=== PATIENT | male | born 1960 | race Caucasian/White ===

== ENCOUNTER 2022-04-22 15:24 | Emergency (ER) | payer OTHER, BC, SELFPAY ==
[2022-04-22] VITALS (39 sets, daily range): BP systolic 129–157; BP diastolic 68–96; PULSE 55–72; RESP 10–21; TEMP 36.6–36.8; O2SAT 91–100
--- NOTE | ~2022-04-22 | XR_ITS ---
EXAMINATION: XR hip RT min 2V DATE: 04/22/2022 15:58 INDICATION: Right hip dislocation. TECHNIQUE: 2 views of right hip on 3 radiographs were obtained. COMPARISON: None. FINDINGS: There is a total right hip arthroplasty. There is anterior and lateral dislocation of the f emoral component with respect to the acetabular component. No fracture. No periprosthetic lucency to suggest loosening or infection. IMPRESSION: 1. Dislocated total right hip arthroplasty. Reviewed, dictated and finalized at location A.
--- NOTE | ~2022-04-22 | XR_ITS ---
EXAMINATION: XR hip RT 1V INDICATION: Post reduction TECHNIQUE: AP view of the right hip is obtained. COMPARISON: 1550 hours FINDINGS: The total right hip arthroplasty has been reduced. Alignment is anatomic. No fracture is id entified. IMPRESSION: 1. Reduced total right hip arthroplasty. Reviewed, dictated and finalized at location A.
--- NOTE | 2022-04-22 15:46 | PC.NURSE ---
Pt off floor to xray
--- NOTE | 2022-04-22 16:08 | ED.LOWEXIN ---
HPI - Extremity Injury (Lower) General Chief Complaint: Extremity Injury, Lower <Larissa Bernabe PA-C - Last Filed: 04/22/22 18:16> Stated Complaint: ?hip out of socket <ONEL Bell Last Filed: 04/22/22 18:16> Time Seen by Provider: 04/22/22 15:42 <ONEL Bell Last Filed: 04/22/22 18:16> Source: patient <ONEL Bell Last Filed: 04/22/22 18:16> Mode of arrival: ambulatory <ONEL Bell Last Filed: 04/22/22 18:16> Limitations: no limitations <ONEL Bell Last Filed: 04/22/22 18:16> History of Present Illness HPI Narrative: This is a 62-year-old male that presents to the emergency department for right hip pain. Reports he was stepping up into the bed of his truck and felt a pop in the right hip. Reports this is happened several times before, but it usually resolves itself. He has never had to come to the ER to have the hip reduced. He has history of a right hip replacement which was done about 5 years ago. Reports decreased ROM. Denies numbness. <Larissa Bernabe PA-C - Last Filed: 04/22/22 18:16> Related Data Allergies/Adverse Reactions: Allergies Allergy/AdvReac Type Severity Reaction Status Date / Time Penicillins Allergy Unknown Verified 04/22/22 15:46 <ONEL Bell Last Filed: 04/22/22 18:16> Review of Systems Review of Systems: CONSTITUTIONAL: Denies fever MUSCULOSKELETAL: Reports joint pain, and myalgia. NEUROLOGIC: Denies numbness <ONEL Bell Last Filed: 04/22/22 18:16> All systems reviewed & are unremarkable except as noted in HPI and below <ONEL Bell Last Filed: 04/22/22 18:16> [facility] Past Medical History Medical History: Medical History (Updated 04/22/22 @ 18:14 by Larissa Bernabe PA-C) No active medical problems <Larissa Bernabe PA-C - Last Filed: 04/22/22 18:16> Social History Social History: Social History (Updated 04/22/22 @ 16:08 by Larissa Bernabe PA-C) Substance use: never <Larissa Bernabe PA-C - Last Filed: 04/22/22 18:16> Exam Narrative: GENERAL: Well-appearing, well-nourished, and in no acute distress. HEAD: Normocephalic, atraumatic. EYES: EOMI. EXTREMITIES: No edema. Decreased active ROM in the right hip with internal rotation noted. Normal DP pulse SKIN: Warm, dry, no rash. NEURO: No focal deficits. Alert and oriented x3. PSYCH: Normal mood and affect <Larissa Bernabe PA-C - Last Filed: 04/22/22 18:16> Course Consultations Consultation #1: Spoke with patient's orthopedic doctor on-call. Patient is to ambulate with a walker and follow-up in clinic in the next week <Larissa Bernabe PA-C - Last Filed: 04/22/22 18:16> Date: 04/22/22 <Larissa Bernabe PA-C - Last Filed: 04/22/22 18:16> Time: 18:11 <Larissa Bernabe PA-C - Last Filed: 04/22/22 18:16> Vital Signs Vital signs: Vital Signs Pulse Rate 69 04/22/22 15:39 Respiratory Rate 15 04/22/22 15:39 Blood Pressure 142/96 H 04/22/22 15:39 Pulse Oximetry 97 04/22/22 15:39 Temperature 98.2 F 04/22/22 17:06 Pulse Rate 65 04/22/22 18:15 Respiratory Rate 11 L 04/22/22 18:15 Blood Pressure 141/78 H 04/22/22 17:46 Pulse Oximetry 97 04/22/22 17:46 Oxygen Delivery Room Air 04/22/22 17:13 <Larissa Bernabe PA-C - Last Filed: 04/22/22 18:16> Vital Signs Pulse Rate 69 04/22/22 15:39 Respiratory Rate 15 04/22/22 15:39 Blood Pressure 142/96 H 04/22/22 15:39 Pulse Oximetry 97 04/22/22 15:39 Temperature 98.2 F 04/22/22 17:06 Pulse Rate 65 04/22/22 18:15 Respiratory Rate 11 L 04/22/22 18:15 Blood Pressure 141/78 H 04/22/22 17:46 Pulse Oximetry 97 04/22/22 17:46 Oxygen Delivery Room Air 04/22/22 17:13 <Dee Harden MD - Last Filed: 04/22/22 18:22> Vital Signs Pulse Rate 69 04/22/22 15:39 Respiratory Rate 15 04/22/22 15:39 Blood Pressure 142/96 H
[2022-04-22] MEDS: fentaNYL CITRATE INJ (*CRX) 100 MCG/2 ML VIAL 50 MCG IV PUSH (16:40)
--- NOTE | 2022-04-22 17:45 | PC.NURSE ---
Remaining Propofol (920 mg, 92 mL) wasted with ELIZABETH Ceballos.
== END 2022-04-22 18:15 | disposition home or self-care (01) ==
PROVIDERS: Emergency Provider Emergency Medicine
DX: T84.020A Dislocation of internal right hip prosthesis, initial encounter (principal); Y79.2 Prosthetic and other implants, materials and accessory orthopedic devices associated with adverse incidents
CPT/HCPCS: 27266; 73501; 73502; 96374; 99285; J2704; J3010; J7030